=== PATIENT | female | born 1975 | race Caucasian/White ===

== ENCOUNTER 2019-04-17 14:38 | Outpatient (CLI) | payer BC ==
--- NOTE | 2019-04-17 16:36 | MRI ---
MR CERVICAL SPINE WITHOUT CONTRAST INDICATION: 44-year-old female with neck pain, stiffness, muscle spasms and migraine headaches TECHNIQUE: Multiplanar multisequence MR images were obtained of the cervical spine without contrast. COMPARISON: None FINDINGS: Posterior fossa: Within normal limits. Bone marrow signal intensity: Normal Spinal alignment: Normal. Craniocervical junction: Normal appearing. Prevertebral and perivertebral soft tissues: Visualized soft tissues appear within normal limits. Vertebral levels: C2-C3: No appreciable central canal or neuroforaminal narrowing. C3-4: There is mild facet joint degenerative change and a mild broad-based bulge but no appreciable c entral canal or neural foraminal narrowing. C4-5: There is a mild broad-based bulge with mild facet joint degenerative change but no appreciable central canal or neural foraminal narrowing. C5-C6: There is a mild broad-based bulge with mild facet joint degenerative change. There is mild unc overtebral hypertrophy causing mild left neural foraminal narrowing. C6-C7:, Mild broad-based bulge but no appreciable central canal or neural foraminal narrowing. C7-T1: No appreciable central canal or neuroforaminal narrowing. IMPRESSION: 1. Mild cervical spondylosis. 2. Mild left neural foraminal narrowing at C5-6.
--- NOTE | 2019-04-17 16:48 | MRI ---
MRI thoracic spine without contrast: 04/17/2019 HISTORY: Thoracic spine pain TECHNIQUE: Multiplanar multisequence MR imaging of the thoracic spine without contrast FINDINGS: Significant mid/lower thoracic spine dextroscoliosis is suspected, not well assessed on thi s examination as no coronal imaging is available. Correlation with radiographs suggested. The sagittal STIR imaging demonstrates no focal area of osseous marrow edema. No significant anterolisthesis or retrolisthesis is noted within the thoracic spine. No significant central canal stenosis is noted at any level within the thoracic spine. At T8-9 there is a small central disc protrusion. Multiple benign hemangiomata are noted. No suspicious osseous marrow signal intensity. The thoracic c ord demonstrates signal intensity. There is a moderate-sized hiatal hernia suspected, not well evaluated on this examination. IMPRESSION: Dextroscoliosis, incompletely assessed on this exam. Correlation with radiographs advised . Findings suggesting a hiatal hernia. Recommend correlation with barium swallow.
== END 2019-04-17 14:39 | disposition home or self-care (01) ==
LOC: BICMRI 14:38
PROVIDERS: ATTEND Neurological Surgery
DX: M54.6 Pain in thoracic spine (principal); M54.2 Cervicalgia; M48.02 Spinal stenosis, cervical region; M47.812 Spondylosis without myelopathy or radiculopathy, cervical region
CPT/HCPCS: 72141; 72146

== ENCOUNTER 2019-04-18 15:39 | Outpatient (CLI) | payer BC ==
--- NOTE | 2019-04-18 16:58 | MRI ---
MRI OF THE LUMBAR SPINE WITHOUT CONTRAST: 04/18/19 COMPARISON: None. HISTORY: Muscle spasms, low back pain and back stiffness. TECHNIQUE: Multiplanar and multisequence MR imaging of the lumbar spine obtained without contrast. FINDINGS: Coronal imaging demonstrates significant dextroscoliosis centered at the upper lumbar spine at the th oracolumbar junction. Coronal imaging demonstrates incompletely assessed areas of tubular lobulated increased T2 signal int ensity. This is only partially visualized on this examination and may represent bilateral hydrosalpin x. Dedicated pelvic imaging via ultrasound is advised. The sagittal STIR imaging demonstrates no focal area of osseous marrow edema. On the basis of five carmen mbar type vertebral bodies, the conus medullaris terminates at the T12-L1 level. T12-L1: Intervertebral disc height and signal intensity is within normal limits with no significant central canal or neural foraminal stenosis. L1-2: There is disc space narrowing and disc desiccation with anterior osteophyte formation and mild disc bulge. No associated central canal stenosis. Mild bilateral facet hypertrophy. Mild right neural foraminal stenosis. No significant left neural foraminal stenosis. L2-3: There is disc space narrowing and minimal disc bulge with no significant central canal stenosis . There is mild bilateral facet hypertrophy. No significant neural foraminal stenosis. L3-4: Intervertebral disc height and signal intensity appears within normal limits. No significant ce ntral canal or neural foraminal stenosis. L4-5: Disc space narrowing and disc desiccation with disc bulge and small central disc protrusion. N o significant central canal stenosis. Mild bilateral facet hypertrophy. No significant neural foramin al stenosis on either side. L5-S1: Intervertebral disc height and signal intensity within normal limits. Mild bilateral facet hyp ertrophy with no significant central canal or neural foraminal stenosis. The visualized retroperitoneal structures demonstrate no acute findings. IMPRESSION: 1. Degenerative changes within the lumbar spine as detailed above. There is levoscoliosis center ed at the upper lumbar region/L1-2. 2. Incompletely imaged lobulated T2 hyperintensity within the pelvis. This demonstrates a somew hat serpiginous configuration and is suspicious for bilateral hydrosalpinx. Dedicated imaging is advi sed via ultrasound or pelvic MRI. Code T POS: OFF
== END 2019-04-18 15:40 | disposition home or self-care (01) ==
LOC: BICMRI 15:39
PROVIDERS: ATTEND Neurological Surgery
DX: M54.5 Low back pain (principal); M41.9 Scoliosis, unspecified; M47.816 Spondylosis without myelopathy or radiculopathy, lumbar region
CPT/HCPCS: 72148

== ENCOUNTER 2019-06-02 14:54 | Outpatient (CLI) | payer BC ==
--- NOTE | 2019-06-02 15:55 | RAD ---
EXAM: 5 views of the cervical spine HISTORY: Neck pain and radiculopathy COMPARISON: None FINDINGS: AP, lateral, and flexion/extension views of the cervical spine shows normal height and alig nment of the vertebral bodies and intervertebral discs without fracture or subluxation. Mild joint space narrowing and osteophyte formation is seen at C5/6. No prevertebral soft tissue swelling is see n. Alignment is unchanged with flexion and extension. IMPRESSION: Mild degenerative change at C5/6 with unchanged alignment with bending.
--- NOTE | 2019-06-02 16:10 | CT ---
EXAM: CT cervical spine PROVIDED CLINICAL HISTORY: Cervical radiculopathy. Patient is having neck pain that radiates down right arm with associated burn ing sensation. TECHNIQUE: Contiguous axial CT images are obtained through the cervical spine from the skull base to the T2 leve l. Sagittal and coronal reformatted images are provided. COMPARISON: MRI cervical spine on 04/17/2019 FINDINGS: No evidence for fracture or traumatic subluxation. Degenerative changes are present at the C5-6 level with loss of intervertebral disc height and endpla te degenerative changes. A disc osteophyte complex is present. These findings were seen on prior MRI exam. There is mild effacement of ventral subarachnoid space. There is no significant bony encroa chment on the neural foramina. No bony encroachment is seen on the remaining central canal or neural foramina throughout the cervical spine. No prevertebral soft tissue swelling apparent. Visualized lung apices appear clear. Tiny 3 mm hypodense nodule is seen in the left lobe of thyroid gland which is too small to characteri ze. IMPRESSION: 1. Degenerative changes at the C5-6 level also noted on prior MRI cervical spine. 2. No fracture or subluxation involving the cervical spine. 3. Too small to characterize 3 mm nodule left lobe of thyroid gland.
== END 2019-06-02 14:55 | disposition home or self-care (01) ==
LOC: BICCT 14:54
PROVIDERS: ATTEND Neurological Surgery
DX: M47.22 Other spondylosis with radiculopathy, cervical region (principal); E04.1 Nontoxic single thyroid nodule
CPT/HCPCS: 72050; 72125

== ENCOUNTER 2022-09-07 09:34 | Outpatient (CLI) | payer BC | END 2022-09-07 09:35 | disposition home or self-care (01) | LOC: TBSIIMAG 09:34 | PROVIDERS: ATTEND Neurological Surgery | DX: M51.36 Other intervertebral disc degeneration, lumbar region (principal); M47.816 Spondylosis without myelopathy or radiculopathy, lumbar region; M41.9 Scoliosis, unspecified; M46.06 Spinal enthesopathy, lumbar region | CPT/HCPCS: 72100 ==